=== PATIENT | female | born 1965 | race Caucasian/White ===

== ENCOUNTER 2017-12-26 11:11 | Emergency (ER) | payer MEDICARE, OTHER ==
--- NOTE | 2017-12-26 11:50 | ER Document Report ---
ED Medical Screen (RME) - General TRAVEL OUTSIDE OF THE [place] IN LAST 30 DAYS: No <MIKO LATIF - Last Filed: 12/26/17 11:49> <NIKKO MARTINEZ - Last Filed: 12/26/17 13:47> - General Chief Complaint: Alcohol Withdrawl Stated Complaint: ABDOMINAL PAIN - HPI Notes: 12/26/17 11:49 History of Lema and alcohol use/drink 1 hour prior to arrival states she drinks because she is also help out with her possibility of getting a liver transplant. History of hyperammonemia complaining of generalized weakness nausea requesting detox (MIKO LATIF) - Related Data Allergies/Adverse Reactions: No Known Allergies Allergy (Verified 12/26/17 11:15) Past Medical History Endocrine Medical History: Reports: Hx Diabetes Mellitus Type 2 GI Medical History: Denies: Hx Hepatitis Infectious Medical History: Denies: Hx Hepatitis Past Surgical History: Reports: Hx Cholecystectomy, Hx Hysterectomy - Immunizations Hx Diphtheria, Pertussis, Tetanus Vaccination: Yes <MIKO LATIF - Last Filed: 12/26/17 11:49> Review of Systems - Review of Systems Constitutional: Other - Weakness <MIKO LATIF - Last Filed: 12/26/17 11:49> Physical Exam - HEENT Head: Normocephalic Eyes: Normal Conjunctiva: Icteric <MIKO LATIF - Last Filed: 12/26/17 11:49> - Vital signs Vitals: Temp Pulse Resp BP Pulse Ox 98.6 F 103 H 20 142/68 H 96 12/26/17 11:17 12/26/17 11:17 12/26/17 11:17 12/26/17 11:17 12/26/17 11:17 Course - Laboratory Result Diagrams: 12/26/17 12:09 12/26/17 12:09 <NIKKO MARTINEZ - Last Filed: 12/26/17 13:47> - Vital Signs Vital signs: Temp Pulse Resp BP Pulse Ox 98.6 F 103 H 20 142/68 H 96 12/26/17 11:17 12/26/17 11:17 12/26/17 11:17 12/26/17 11:17 12/26/17 11:17 - Laboratory Laboratory results interpreted by me: 12/26/17 12/26/17 12/26/17 12:09 12:09 12:09 WBC 11.7 H RBC 3.39 L Hgb 11.3 L Hct 33.2 L MCV 98 H RDW 20.7 H Plt Count 129 L Absolute Neutrophils 9.0 H PT 18.0 H APTT 42.2 H Anion Gap 21 H Glucose 237 H Total Bilirubin 7.5 H Direct Bilirubin 3.8 H AST 145 H Alkaline Phosphatase 133 H Total Protein 8.8 H Serum Alcohol 323 H* Doctor's Discharge <MIKO LATIF - Last Filed: 12/26/17 11:49> <NIKKO MARTINEZ - Last Filed: 12/26/17 13:47> - Discharge Clinical Impression: Alcohol abuse Condition: Fair Disposition: HOME, SELF-CARE Instructions: Alcohol Withdrawl ([facility]), Chronic Alcoholism ([facility]) Prescriptions: Lorazepam [Ativan 1 mg Tablet] 1 mg PO Q4 #10 tablet
[2017-12-26 12:37] LABS: ABSOLUTE BASOPHILS # (AUTO) 0.1 10^3/uL (0.0-0.2); ABSOLUTE EOSINOPHILS # (AUTO) 0.2 10^3/uL (0.0-0.6); ABSOLUTE LYMPHOCYTES (AUTO) 1.7 10^3/uL (0.5-4.7); ABSOLUTE MONOCYTES (AUTO) 0.6 10^3/uL (0.1-1.4); BASOPHILS % (AUTO) 1.1 % (0-2); EOSINOPHILS % (AUTO) 1.8 % (0-6); HEMATOCRIT 33.2 % (36.0-47.0); HEMOGLOBIN 11.3 g/dL (12.0-15.5); LYMPHOCYTES % (AUTO) 14.5 % (13-45); MEAN CORPUSCULAR HEMOGLOBIN 33.2 pg (27.0-33.4); MEAN CORPUSCULAR HGB CONC 33.9 g/dL (32.0-36.0); MEAN CORPUSCULAR VOLUME 98 fl (80-97); MONOCYTES % (AUTO) 5.2 % (3-13); PLATELET COUNT 129 10^3/uL (150-450); RED BLOOD COUNT 3.39 10^6/uL (3.72-5.28); RED CELL DISTRIBUTION WIDTH 20.7 % (11.5-14.0); SEGMENTED NEUTROPHILS % (AUTO) 77.4 % (42-78); TOTAL CELLS COUNTED % (AUTO) 100 %; WHITE BLOOD COUNT 11.7 10^3/uL (4.0-10.5)
[2017-12-26 12:42] LABS: INTERNATIONAL RATION (INR) 1.42
[2017-12-26 12:43] LABS: PARTIAL THROMBOPLASTIN TIME 42.2 SEC (23.5-35.8)
[2017-12-26] MEDS ORDERED: LORAZEPAM INJ 2 MG/1 ML VIAL IV ONE (13:04)
[2017-12-26] MEDS ORDERED: ONDANSETRON HCL INJ/PF 4 MG/2 ML SDV IV ONE (13:04)
[2017-12-26] MEDS ORDERED: NORMAL SALINE 1000 ML 1,000 ML IV ONE (13:04)
[2017-12-26 13:05] LABS: ALANINE AMINOTRANSFERASE 33 U/L (9-52); ALBUMIN 3.9 g/dL (3.5-5.0); ALKALINE PHOSPHATASE 133 U/L (38-126); ASPARTATE AMINO TRANSFERASE 145 U/L (14-36); BILIRUBIN,DIRECT 3.8 mg/dL (0.0-0.4); BILIRUBIN,TOTAL 7.5 mg/dL (0.2-1.3); BLOOD UREA NITROGEN 13 mg/dL (7-20); GLUCOSE 237 mg/dL (75-110); LIPASE 171.4 U/L (23-300); POTASSIUM 4.3 mmol/L (3.6-5.0); TOTAL PROTEIN 8.8 g/dL (6.3-8.2)
[2017-12-26 13:09] LABS: CARBON DIOXIDE 25 mmol/L (22-30); CHLORIDE 98 mmol/L (98-107); SODIUM 144.2 mmol/L (137-145)
[2017-12-26 13:16] LABS: ANION GAP 21 (5-19)
[2017-12-26 13:26] LABS: ALCOHOL 323 mg/dL (NONE DETECTED)
[2017-12-26 13:55] VITALS: BP 129/77
--- NOTE | 2017-12-26 16:31 | ER Document Report ---
ED General - General Chief Complaint: Alcohol Withdrawl Stated Complaint: ABDOMINAL PAIN Time Seen by Provider: 12/26/17 11:50 TRAVEL OUTSIDE OF THE [place] IN LAST 30 DAYS: No - HPI Notes: Note patient seen by physician in triage who ordered labs. 52-year-old female history of an SOLORIO, now on the transplant list secondary liver failure who presents with wanting help with alcohol addiction. Patient chronic alcoholic who has somewhat of a bizarre story. Patient actually developed SOLORIO prior to beginning drinking. She states she began drinking several years after because she was frustrated and just wanted to . She however now feels a will to live, but wants help getting off of alcohol. She has been trying to cut down over the last couple of days, but has been getting sick. She has had occasional vomiting and nausea. Chronic loose stools. No acute abdominal pain. She has had the same symptoms in the past when she is crying to quit drinking. Of note, she does not wish anybody be notified as she is afraid she will lose her place on a transplant list. She states she will not authorize me to contact any of her providers. No other modifying factors, no other associated symptoms, no other provocative or palliative factors. - Related Data Allergies/Adverse Reactions: No Known Allergies Allergy (Verified 12/26/17 11:15) Past Medical History - Social History Smoking Status: Former Smoker Chew tobacco use (# tins/day): No Frequency of alcohol use: Heavy Drug Abuse: None Family History: Reviewed & Not Pertinent Patient has suicidal ideation: No Patient has homicidal ideation: No - Medical History Notes: Includes liver failure, transplant list Endocrine Medical History: Reports: Hx Diabetes Mellitus Type 2 Renal/ Medical History: Denies: Hx Peritoneal Dialysis GI Medical History: Denies: Hx Hepatitis Infectious Medical History: Denies: Hx Hepatitis Past Surgical History: Reports: Hx Cholecystectomy, Hx Hysterectomy - Immunizations Hx Diphtheria, Pertussis, Tetanus Vaccination: Yes Review of Systems - Review of Systems Notes: Review of systems as in the history of present illness, otherwise negative. Physical Exam - Vital signs Vitals: Temp Pulse Resp BP Pulse Ox 98.6 F 103 H 20 142/68 H 96 12/26/17 11:17 12/26/17 11:17 12/26/17 11:17 12/26/17 11:17 12/26/17 11:17 - Notes Notes: General: Well developed . Chronically ill in appearance HEENT: Normocephalic, atraumatic. Pupils equal round reactive to light. No JVD. Icteric Chest: No trauma. Respiratory: Good air exchange, normal excursion. Cardiac: Regular rhythm. No murmurs or gallops. Abdomen: Soft, benign. Nondistended. Nontender. Back: No asymmetry or gross abnormality. Motor: Decreased power and tone. Neurologic: Alert, nonfocal. Cranial nerves II-12 are intact. Sensation intact. Vascular: Well perfused. Normal peripheral pulses. Skin: No petechiae or purpura. Course - Re-evaluation Re-evalutation: 12/26/17 16:29 Chronically ill-appearing 52-year-old female presents with alcoholism, likely possible withdrawal or other side effects were used. Labs are reviewed, CBC unremarkable except chronic changes. Chemistries and LFTs are unremarkable except for elevated liver function testing which is expected. Alcohol level elevated in the low 300s. Part of this patient received IV fluids, Zofran and a single small dose of Ativan. She has had substantial improvement. I have reviewed at length with her and her options and suggested the possibility of medical admission and detox, however, they wish to make an attempt at home. I given the a prescription for Ativan taper which she will manage, patient will not be given this if she has any evidence of alcohol use. He will follow-up with her primary care physician and I have discussed with them outpatient resources. - Vital Signs Vital signs: Temp Pulse Resp BP Pulse Ox 98.6 F 103 H 15 129/77 H 93 12/26/17 11:17 12/26/17 11:17 12/26/17 13:45 12/26/17 13:45 12/26/17 13:45 - Laboratory Result Diagrams: 12/26/17 12:09 12/26/17 12:09 Laboratory results interpreted by me: 12/26/17 12/26/17 12/26/17 12:09 12:09 12:09 WBC 11.7 H RBC 3.39 L Hgb 11.3 L Hct 33.2 L MCV 98 H RDW 20.7 H Plt Count 129 L Absolute Neutrophils 9.0 H PT 18.0 H APTT 42.2 H Anion Gap 21 H Glucose 237 H Total Bilirubin 7.5 H Direct Bilirubin 3.8 H AST 145 H Alkaline Phosphatase 133 H Total Protein 8.8 H Serum Alcohol 323 H* Discharge - Discharge Clinical Impression: Alcohol abuse Condition: Fair Disposition: HOME, SELF-CARE Instructions: Alcohol Withdrawl ([facility]), Chronic Alcoholism ([facility]) Prescriptions: Lorazepam [Ativan 1 mg Tablet] 1 mg PO Q4 #10 tablet
== END 2017-12-26 13:55 | disposition home or self-care (01) ==
LOC: ER 11:11
DX: F10.10 Alcohol abuse, uncomplicated (principal); R10.9 Unspecified abdominal pain; R53.1 Weakness; R11.0 Nausea; E11.9 Type 2 diabetes mellitus without complications; Z90.49 Acquired absence of other specified parts of digestive tract; Z90.710 Acquired absence of both cervix and uterus
CPT/HCPCS: 99285; 96361; 96374; 96375; 36415; 80307; 82140; 83690; 85025; 85610; 85730; 80053; J2060; J2405; J7030

== ENCOUNTER 2017-12-27 11:22 | Inpatient (IN) | payer MEDICARE, OTHER ==
[2017-12-27 12:12] LABS: ABSOLUTE BASOPHILS # (AUTO) 0.1 10^3/uL (0.0-0.2); ABSOLUTE LYMPHOCYTES (AUTO) 1.3 10^3/uL (0.5-4.7); ABSOLUTE MONOCYTES (AUTO) 0.9 10^3/uL (0.1-1.4); BASOPHILS % (AUTO) 0.8 % (0-2); EOSINOPHILS % (AUTO) 0.4 % (0-6); HEMATOCRIT 28.5 % (36.0-47.0); HEMOGLOBIN 9.4 g/dL (12.0-15.5); LYMPHOCYTES % (AUTO) 12.8 % (13-45); MEAN CORPUSCULAR HGB CONC 32.9 g/dL (32.0-36.0); MONOCYTES % (AUTO) 8.5 % (3-13); PLATELET COUNT 108 10^3/uL (150-450); RED BLOOD COUNT 2.76 10^6/uL (3.72-5.28); RED CELL DISTRIBUTION WIDTH 20.2 % (11.5-14.0); SEGMENTED NEUTROPHILS % (AUTO) 77.5 % (42-78); TOTAL CELLS COUNTED % (AUTO) 100 %; WHITE BLOOD COUNT 10.4 10^3/uL (4.0-10.5)
[2017-12-27 12:28] LABS: ALANINE AMINOTRANSFERASE 33 U/L (9-52); ALBUMIN 3.5 g/dL (3.5-5.0); ALCOHOL 56 mg/dL (NONE DETECTED); ALKALINE PHOSPHATASE 112 U/L (38-126); ASPARTATE AMINO TRANSFERASE 121 U/L (14-36); BILIRUBIN,DIRECT 3.1 mg/dL (0.0-0.4); BILIRUBIN,TOTAL 5.7 mg/dL (0.2-1.3); BLOOD UREA NITROGEN 20 mg/dL (7-20); CALCIUM 9.1 mg/dL (8.4-10.2); CARBON DIOXIDE 25 mmol/L (22-30); CHLORIDE 91 mmol/L (98-107); LIPASE 204.3 U/L (23-300); POTASSIUM 4.2 mmol/L (3.6-5.0); TOTAL PROTEIN 7.5 g/dL (6.3-8.2)
[2017-12-27 12:29] LABS: MEAN CORPUSCULAR VOLUME 104 fl (80-97)
[2017-12-27] MEDS ORDERED: LORAZEPAM INJ 2 MG/1 ML VIAL IV ONE ×3 (12:32→14:57)
[2017-12-27] MEDS ORDERED: NORMAL SALINE 1000 ML 1,000 ML IV ONE ×2 (12:32→13:25)
[2017-12-27] MEDS ORDERED: PANTOPRAZOLE SODIUM 40 MG VIAL IV ONE (12:32)
[2017-12-27] MEDS ORDERED: ONDANSETRON HCL INJ/PF 4 MG/2 ML SDV IV ONE (12:32)
[2017-12-27 12:33] LABS: ANION GAP 22 (5-19)
[2017-12-27 12:36] LABS: GLUCOSE 599 mg/dL (75-110)
--- NOTE | 2017-12-27 12:39 | ER Document Report ---
ED General - General Chief Complaint: Black/Tarry Stools Stated Complaint: ABDOMINAL PAIN Time Seen by Provider: 12/27/17 11:32 TRAVEL OUTSIDE OF THE [place] IN LAST 30 DAYS: No - HPI Notes: This is a 52-year-old female with nonalcoholic steatotic hepatitis and attendant liver failure, on transplant list, chronic alcoholic who presents with not feeling well and having dark tarry stools. Of note, I saw this patient yesterday, she presented seeking help for getting off alcohol but he refused to allow me to contact any of her caregivers or to be admitted to the hospital. She now states overnight this morning she developed a general feeling of weakness, some epigastric discomfort and has had dark tarry stools. She is an exceptionally poor historian but indicates she has had some type of intervention before they had trouble "controlling bleeding". Sharp achy pain, burning, nonradiating. She claims her last drink was yesterday morning before she saw me. No other modifying factors, no other associated symptoms, no other provocative or palliative factors. - Related Data Allergies/Adverse Reactions: No Known Allergies Allergy (Verified 12/26/17 11:15) Past Medical History - General Information source: Patient - Social History Smoking Status: Unknown if Ever Smoked Frequency of alcohol use: Heavy Family History: Reviewed & Not Pertinent Patient has suicidal ideation: No Patient has homicidal ideation: No - Medical History Notes: Reviewed on the nursing notes and includes nonalcoholic steatohepatitis hepatitis, liver failure, possible ulcer, gastritis and variceal history Endocrine Medical History: Reports: Hx Diabetes Mellitus Type 2 Renal/ Medical History: Denies: Hx Peritoneal Dialysis GI Medical History: Denies: Hx Hepatitis Infectious Medical History: Denies: Hx Hepatitis Past Surgical History: Reports: Hx Cholecystectomy, Hx Hysterectomy - Immunizations Hx Diphtheria, Pertussis, Tetanus Vaccination: Yes Review of Systems - Review of Systems Notes: Review of systems as in the history of present illness, otherwise negative. Physical Exam - Vital signs Vitals: Pulse Ox 96 12/27/17 11:25 - Notes Notes: General: Chronically ill in appearance, moderate distress. HEENT: Normocephalic, atraumatic. Pupils equal round reactive to light. No JVD. Icteric Chest: No trauma. Respiratory: Good air exchange, normal excursion. Cardiac: Regular rhythm. No murmurs or gallops. Abdomen: Soft, benign. Nondistended. Moderate epigastric tenderness Back: No asymmetry or gross abnormality. Motor: G decreased power and tone. Neurologic: Alert, nonfocal. Cranial nerves II-12 are intact. Sensation intact. Vascular: Well perfused. Normal peripheral pulses. Skin: No petechiae or purpura. Course - Re-evaluation Re-evalutation: 12/27/17 12:39 This is an ill-appearing 52-year-old female who presents with dark tarry stools , high risk for GI bleeding. Certainly high risk for DTs and/or alcohol withdrawal as well. Plan to proceed with labs, x-ray, volume resuscitation, EKG. Check hemoglobin, type and cross, will likely require admission. - Vital Signs Vital signs: Temp Pulse Resp BP Pulse Ox 98.8 F 27 H 149/82 H 96 12/27/17 11:53 12/27/17 12:01 12/27/17 12:01 12/27/17 12:01 - Laboratory Result Diagrams: 12/27/17 10:45 12/27/17 10:45 Laboratory results interpreted by me: 12/27/17 12/27/17 10:45 10:45 RBC 2.76 L Hgb 9.4 L Hct 28.5 L MCV 104 H D MCH 34.0 H RDW 20.2 H Plt Count 108 L Lymphocytes % 12.8 L Chloride 91 L Anion Gap 22 H Glucose 599 H* Total Bilirubin 5.7 H Direct Bilirubin 3.1 H AST 121 H Discharge - Discharge Clinical Impression: GI bleed Qualifiers: GI bleed type/associated pathology: melena Qualified Code(s): K92.1 - Melena Condition: Serious Disposition: HOME, SELF-CARE Admitting Provider: Hospitalist Unit Admitted: IMCU Referrals: JUHI OZUNA MD [Primary Care Provider] - Follow up as needed
[2017-12-27] MEDS ORDERED: INSULIN LISPRO 100 UNIT/ML 3 ML VIAL SUBCUT ONE (12:55)
[2017-12-27] MEDS ORDERED: CEFTRIAXONE INJ 1000 MG VIAL IV ONE (13:06)
--- NOTE | 2017-12-27 13:17 | RADIOLOGY REPORT (SQ) ---
EXAM DESCRIPTION: CHEST SINGLE VIEW COMPLETED DATE/TIME: 12/27/2017 12:54 pm REASON FOR STUDY: dyspnea COMPARISON: None. EXAM PARAMETERS: NUMBER OF VIEWS: One view. TECHNIQUE: Single frontal radiographic view of the chest acquired. RADIATION DOSE: NA LIMITATIONS: None. FINDINGS: LUNGS AND PLEURA: No opacities, masses or pneumothorax. No pleural effusion. MEDIASTINUM AND HILAR STRUCTURES: No masses. Contour normal. HEART AND VASCULAR STRUCTURES: Heart normal in size. Normal vasculature. BONES: No acute findings. HARDWARE: None in the chest. OTHER: No other significant finding. IMPRESSION: NO ACUTE RADIOGRAPHIC FINDING IN THE CHEST. TECHNICAL DOCUMENTATION: JOB ID: [id number] QBE- All Rights Reserved Reading location - IP/workstation name: [email or web address]
[2017-12-27] MEDS ORDERED: PROMETHAZINE HCL INJ 25 MG/1 ML VIAL IV ONE (14:15)
[2017-12-27] MEDS ORDERED: DEXTROSE 50%-WATER 25 GM/50 ML DISP.SYRIN IV PRN ×4 (15:11→19:25)
[2017-12-27] MEDS ORDERED: INSULIN REG, HUMAN 100 UNIT/ML 3 ML VIAL (PYX) SUBCUT PRN (15:11)
[2017-12-27] MEDS ORDERED: DEXTROSE 40% GEL 15 GM TUBE PO PRN ×4 (15:11→19:25)
[2017-12-27] MEDS ORDERED: GLUCAGON,HUMAN RECOMB 1 MG INJ IM PRN ×2 (15:11→19:25)
[2017-12-27] MEDS: LORAZEPAM INJ 2 MG/1 ML VIAL IV SCH ×3 (16:10→23:57)
[2017-12-27 16:32] LABS: HEMATOCRIT 24.2 % (36.0-47.0); HEMOGLOBIN 8.3 g/dL (12.0-15.5); MEAN CORPUSCULAR HEMOGLOBIN 34.1 pg (27.0-33.4); MEAN CORPUSCULAR HGB CONC 34.1 g/dL (32.0-36.0); RED BLOOD COUNT 2.42 10^6/uL (3.72-5.28); RED CELL DISTRIBUTION WIDTH 20.8 % (11.5-14.0)
[2017-12-27 16:45] LABS: MEAN CORPUSCULAR VOLUME 100 fl (80-97); PLATELET COUNT 69 10^3/uL (150-450)
--- NOTE | 2017-12-27 17:48 | PDOC CONSULTATION ---
Consultation Consult Date: 12/27/17 Attending physician:: MAINE PABLO Consult reason:: Possible GI bleeding, melena. Anemia. Cirrhosis secondary to nonalcoholic fatty liver disease. Recent alcohol use with possible symptoms of withdrawal History of Present Illness Admission Date/PCP: 12/27/17 14:44 JUHI OZUNA MD History of Present Illness: MARTA BARBOSA is a 52 year old female Is a patient who was admitted by the hospitalist service earlier today. She presented yesterday to the ED for possible early symptoms of alcohol withdrawal. An attempt to manage as an outpatient failed. She came back to the ED. She does have chronic anemia and was complaining of epigastric pain with dark tarry stools. She apparently on a transplant list. She appears to have cirrhosis secondary to nonalcoholic fatty liver disease. She recently started drinking. She does have abnormal LFTs, suggestive of possibly an alcoholic hepatitis as well. She will need an EGD because she has possibly has varices. She should be started on a PPI. Her systolic pressures should be kept under 140 mmHg. Perhaps Sandostatin may be useful as well. She needs to be treated for withdrawal symptoms. EGD is planned at this point. Past Medical History Endocrine Medical History: Reports: Diabetes Mellitus Type 2 GI Medical History: Denies: Hepatitis Past Surgical History Past Surgical History: Reports: Cholecystectomy, Hysterectomy Social History Smoking Status: Unknown if Ever Smoked Family History Family History: Reviewed & Not Pertinent Parental Family History Reviewed: Yes Children Family History Reviewed: Unknown Sibling(s) Family History Reviewed.: Unknown Medication/Allergy Home Medications: Furosemide [Lasix 20 mg Tablet] 20 mg PO DAILY 12/27/17 Gabapentin [Neurontin] 1,200 mg PO QAM 12/27/17 Gabapentin [Neurontin] 2,400 mg PO QPM 12/27/17 Insulin Glargine,Hum.rec.anlog [Lantus Solostar] 60 units SQ BID 12/27/17 Midodrine HCl 10 mg PO Q8 12/27/17 Pantoprazole Sodium [Protonix] 40 mg PO BID 12/27/17 Promethazine HCl [Phenergan 25 mg Tablet] 25 mg PO Q6HP PRN 12/27/17 Propranolol HCl [Inderal 10 mg Tablet] 10 mg PO Q12 12/27/17 Quetiapine Fumarate [Seroquel] 50 mg PO QHS 12/27/17 Spironolactone [Aldactone 100 mg Tablet] 100 mg PO QAM 12/27/17 Trazodone HCl [Desyrel] 100 mg PO QHS 12/27/17 Allergies/Adverse Reactions: No Known Allergies Allergy (Verified 12/26/17 11:15) Review of Systems Constitutional: ABSENT: fever(s), headache(s), night sweats Eyes: ABSENT: visual disturbances Ears: ABSENT: hearing changes Nose, Mouth, and Throat: ABSENT: sore throat Cardiovascular: ABSENT: edema, orthropnea, palpitations Respiratory: ABSENT: dyspnea, hemoptysis Gastrointestinal: PRESENT: melena. ABSENT: diarrhea, dysphagia Genitourinary: ABSENT: dysuria, hematuria Integumentary: ABSENT: pruritus Neurological: ABSENT: syncope, tingling, tremor(s), vertigo Endocrine: ABSENT: polydipsia, polyphagia, polyuria Hematologic/Lymphatic: ABSENT: easy bruising Physical Exam Vital Signs: Temp Pulse Resp BP Pulse Ox 98.8 F 27 H 149/82 H 96 12/27/17 11:53 12/27/17 12:01 12/27/17 12:01 12/27/17 12:01 General appearance: PRESENT: mild distress, well-developed Head exam: PRESENT: atraumatic, normocephalic Eye exam: PRESENT: EOMI, PERRLA, scleral icterus. ABSENT: nystagmus Mouth exam: PRESENT: moist Throat exam: ABSENT: tonsillar exudate, tonsillogmegaly Neck exam: ABSENT: meningismus, tenderness, thyromegaly Respiratory exam: PRESENT: symmetrical, unlabored. ABSENT: tachypnea, wheezes Cardiovascular exam: PRESENT: RRR, +S1, +S2 GI/Abdominal exam: PRESENT: soft. ABSENT: rebound, rigid, tenderness Extremities exam: ABSENT: joint swelling Musculoskeletal exam: PRESENT: full ROM Neurological exam: PRESENT: alert, altered, oriented to time Focused psych exam: PRESENT: restlessness Skin exam: PRESENT: normal color. ABSENT: mottled, pallor, urticaria, vesicles Results Laboratory Results: 12/27/17 15:39 12/27/17 15:39 WBC 9.0 RBC 2.42 L Hgb 8.3 L Hct 24.2 L MCV 100 H D MCH 34.1 H MCHC 34.1 RDW 20.8 H Plt Count 69 L Impressions: Chest X-Ray 12/27/17 12:39 IMPRESSION: NO ACUTE RADIOGRAPHIC FINDING IN THE CHEST. Assessment & Plan - Diagnosis (1) Delirium tremens Plan: Plan as per hospitalist admission., Needs IV fluids Check phosphorus. (2) Abnormal LFTs Plan: Could be either component of alcohol induced liver disease, and a combination of fatty liver disease. need to exclude alcoholic hepatitis as well. (3) GI bleed Qualifiers: GI bleed type/associated pathology: melena Qualified Code(s): K92.1 - Melena Plan: Differential includes possible peptic ulcer versus esophageal variceal bleeding. However the latter seems less likely given that she is hemodynamically stable. She does have chronic anemia. She will need to be started on a PPI. She will need to have an EGD. Would be lowe to have that done in the propofol sedation. Risk benefits alternatives were explained to the patient in detail. Further recommendations to follow. We will need to check a coagulopathy profile. (4) Cirrhosis Plan: Patient provides history that this could be secondary to nonalcoholic fatty liver disease. Certainly her use of alcohol is making things much worse for her. She appears to be on a transplant list. We will need to get records of that. - Time Time Spent: 50 to 70 Minutes
--- NOTE | 2017-12-27 18:21 | EKG REPORT ---
SEVERITY:- OTHERWISE NORMAL ECG - SINUS TACHYCARDIA : Confirmed by: Declan Her MD 27-Dec-2017 18:20:15
[2017-12-27] MEDS: LORAZEPAM INJ 2 MG/1 ML VIAL IV PRN ×2 (18:46→22:37)
--- NOTE | 2017-12-27 19:29 | PDOC H&P ---
History of Present Illness Admission Date/PCP: 12/27/17 14:44 JUHI OZUNA MD Patient complains of: Intractable nausea and vomiting and GI bleeding. Tremors History of Present Illness: MARTA BARBOSA is a 52 year old female Who has a complicated past medical history. She apparently has a history of Lema and is currently on a transplant list in [place]. She recently has started drinking heavily and she may have some alcoholic liver disease as well. In any event the patient presented to the emergency room with alcohol withdrawal symptoms and evidence of GI bleeding. She was seen in the emergency room yesterday and had normal hemoglobin. The emergency room physician was going to place her on a lorazepam taper at home as she stated that she wanted to stop drinking. However when she got home her tremors worsened. She started having intractable nausea and vomiting with coffee ground emesis. She also was having dark tarry stools and then had one bloody bowel movement. Past Medical History Cardiac Medical History: Reports: None Denies: Atrial Fibrillation, Congestive Heart Failure, Coronary Artery Disease, Hyperlipidema, Hypertension Pulmonary Medical History: Denies: None, Asthma, Bronchitis, Chronic Obstructive Pulmonary Disease (COPD ), Respiratory Failure EENT Medical History: Denies: Cataracts Neurological Medical History: Denies: Hemorrhagic CVA, Ischemic CVA, Seizures Endocrine Medical History: Reports: Diabetes Mellitus Type 2 Renal/ Medical History: Denies: Chronic Kidney Disease Malignancy Medical History: Reports: None GI Medical History: Reports: Other - Nonalcoholic liver disease and possible alcoholic liver disease as well Denies: Hepatitis Musculoskeltal Medical History: Reports: None Skin Medical History: Reports: None Psychiatric Medical History: Reports: Alcohol Dependency Traumatic Medical History: Reports: None Hematology: Reports: None Infectious Medical History: Reports: None Past Surgical History Past Surgical History: Reports: Cholecystectomy, Hysterectomy Social History Information Source: Patient Lives with: Spouse/Significant other Smoking Status: Unknown if Ever Smoked Frequency of Alcohol Use: Heavy Last Alcohol Use: 12/26/17 Hx Recreational Drug Use: No Drugs: None Hx Prescription Drug Abuse: No - Advance Directive Resuscitation Status: Full Code Family History Family History: None, Reviewed & Not Pertinent Parental Family History Reviewed: Yes Children Family History Reviewed: Yes Sibling(s) Family History Reviewed.: Yes Medication/Allergy Home Medications: Furosemide [Lasix 20 mg Tablet] 20 mg PO DAILY 12/27/17 Gabapentin [Neurontin] 1,200 mg PO QAM 12/27/17 Gabapentin [Neurontin] 2,400 mg PO QPM 12/27/17 Insulin Glargine,Hum.rec.anlog [Lantus Solostar] 60 units SQ BID 12/27/17 Midodrine HCl 10 mg PO Q8 12/27/17 Pantoprazole Sodium [Protonix] 40 mg PO BID 12/27/17 Promethazine HCl [Phenergan 25 mg Tablet] 25 mg PO Q6HP PRN 12/27/17 Propranolol HCl [Inderal 10 mg Tablet] 10 mg PO Q12 12/27/17 Quetiapine Fumarate [Seroquel] 50 mg PO QHS 12/27/17 Spironolactone [Aldactone 100 mg Tablet] 100 mg PO QAM 12/27/17 Trazodone HCl [Desyrel] 100 mg PO QHS 12/27/17 Allergies/Adverse Reactions: No Known Allergies Allergy (Verified 12/26/17 11:15) Review of Systems Constitutional: PRESENT: headache(s), weakness. ABSENT: chills, fever(s) Eyes: ABSENT: visual disturbances Ears: ABSENT: hearing changes Nose, Mouth, and Throat: PRESENT: headache(s) Cardiovascular: ABSENT: chest pain, dyspnea on exertion, edema, orthropnea, palpitations Respiratory: ABSENT: cough, hemoptysis Gastrointestinal: PRESENT: abdominal pain, coffee ground emesis, hematochezia, melena, nausea, vomiting Genitourinary: ABSENT: dysuria, hematuria Integumentary: ABSENT: rash, wounds Neurological: ABSENT: abnormal gait, abnormal speech, confusion, dizziness, focal weakness, syncope Psychiatric: PRESENT: anxiety, depression Endocrine: ABSENT: cold intolerance, heat intolerance, polydipsia, polyuria Hematologic/Lymphatic: ABSENT: easy bleeding, easy bruising Physical Exam Vital Signs: Temp Pulse Resp BP Pulse Ox 101.0 F H 125 H 18 135/61 H 97 12/27/17 18:47 12/27/17 18:47 12/27/17 18:47 12/27/17 18:47 12/27/17 18:47 Intake & Output 12/26/17 12/27/17 12/28/17 06:59 06:59 06:59 Weight 83.1 kg General appearance: PRESENT: mild distress, well-developed Head exam: PRESENT: atraumatic, normocephalic Eye exam: PRESENT: scleral icterus Ear exam: PRESENT: normal external ear exam Mouth exam: PRESENT: moist Neck exam: ABSENT: carotid bruit, JVD, lymphadenopathy, thyromegaly Respiratory exam: PRESENT: clear to auscultation galdino. ABSENT: rales, rhonchi, wheezes Cardiovascular exam: PRESENT: RRR. ABSENT: diastolic murmur, rubs, systolic murmur Pulses: PRESENT: normal dorsalis pedis pul GI/Abdominal exam: PRESENT: guarding, normal bowel sounds, soft, tenderness. ABSENT: distended, mass, organolmegaly, rebound Rectal exam: PRESENT: deferred Extremities exam: PRESENT: full ROM. ABSENT: calf tenderness, clubbing, pedal edema Musculoskeletal exam: PRESENT: ambulatory Neurological exam: PRESENT: alert, awake, oriented to person, oriented to place , oriented to time, oriented to situation, CN II-XII grossly intact, other - She has a significant tremor. ABSENT: motor sensory deficit Psychiatric exam: PRESENT: anxious, depressed Skin exam: PRESENT: dry, intact, warm. ABSENT: cyanosis, rash Results Laboratory Results: 12/27/17 15:39 12/27/17 15:39 WBC 9.0 RBC 2.42 L Hgb 8.3 L Hct 24.2 L MCV 100 H D MCH 34.1 H MCHC 34.1 RDW 20.8 H Plt Count 69 L Impressions: Chest X-Ray 12/27/17 12:39 IMPRESSION: NO ACUTE RADIOGRAPHIC FINDING IN THE CHEST. Assessment & Plan - Diagnosis (1) GI bleed Qualifiers: GI bleed type/associated pathology: melena Qualified Code(s): K92.1 - Melena Is this a current diagnosis for this admission?: Yes Plan: The patient's hemoglobin in the emergency room yesterday was 11.7. It is drifted down to 10.4 today. She has been typed and screened but we are not going to transfuse her as of yet. Therapy will be outlined below. Dr. Mehta from the GI service has been consulted. She has been started on a Protonix drip. (2) Acute blood loss anemia Is this a current diagnosis for this admission?: Yes Plan: For now we will hold off on transfusion. Continue to trend H&H is (3) LEMA (nonalcoholic steatohepatitis) Is this a current diagnosis for this admission?: Yes Plan: She was on the transplant list. 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 Fragoso at [facility] about her alcohol use. I have informed her that I am not going to call him however he will likely follow him find out about this.I would not be surprised if she does not have some alcoholic liver disease contributing to her current decompensated liver failure. (4) Alcohol withdrawal Is this a current diagnosis for this admission?: Yes Plan: The patient will be placed on scheduled IV Ativan. She will have additional Ativan available as needed. She wants to get off of alcohol while she is in the hospital and she is quite adamant about this. (5) Alcohol abuse Is this a current diagnosis for this admission?: Yes Plan: Reportedly the patient started using alcohol to speed up getting on the list for the liver transplant. She states that she was just hovering in limbo and wanted to just get on the list so that she could have the transplant and get it over with. (6) Diabetes Is this a current diagnosis for this admission?: Yes Plan: The patient takes 60 units of Lantus twice daily at home. I am going to start her on 40 units twice daily. Her blood sugars are markedly uncontrolled. I have placed her on a sliding scale but increase the dose of the sliding scale. (7) Severe diabetic hypoglycemia Is this a current diagnosis for this admission?: Yes Plan: Plan as above (8) Full code status Is this a current diagnosis for this admission?: Yes - Time Time Spent: Greater than 70 Minutes - Inpatient Certification Medical Necessity: Need For IV Fluids - Inpatient hospitalization remains necessary. Overall this patient is quite ill. She is actively going through alcohol withdrawal. She has GI bleeding and needs GI evaluation. She is unable to keep anything down. I suspect she will be in the hospital for several days. I fully expect her hospitalization to span greater than 2 midnights., Other
[2017-12-27] MEDS: PROMETHAZINE HCL INJ 25 MG/1 ML VIAL IV PRN (20:16)
[2017-12-27] MEDS: GABAPENTIN 300 MG CAPSULE PO SCH (20:57)
[2017-12-27] MEDS: RIFAXIMIN 550 MG TABLET PO SCH (20:57)
[2017-12-27] MEDS: LACTULOSE SYRUP 20 GM/30 ML UDCUP PO SCH ×2 (20:57→23:56)
[2017-12-27] MEDS: NORMAL SALINE 100 ML with PANTOPRAZOLE SODIUM 80 MG IV PRN ×2 (21:10)
[2017-12-27] MEDS: MIDODRINE HCL 5 MG TABLET PO SCH (21:10)
[2017-12-27] MEDS: BUPROPION HCL 75 MG TABLET PO SCH (21:38)
[2017-12-27] MEDS ORDERED: (PENDING PHARMACY ID) (Midodrine Hcl [Midodrine Hcl] 10 MG) PO SCH (22:00)
[2017-12-27] MEDS ORDERED: TRAZODONE HCL 50 MG TABLET PO SCH (22:00)
[2017-12-27] MEDS ORDERED: (PENDING PHARMACY ID) (Trazodone Hcl [Desyrel] 100 MG) PO SCH (22:00)
[2017-12-27] MEDS ORDERED: INSULIN GLARGINE,HUM.REC.ANLOG 300 UNIT/3 ML INSULN.PEN SUBCUT SCH (22:00)
[2017-12-27] MEDS ORDERED: QUETIAPINE FUMARATE 25 MG TABLET PO SCH (22:00)
[2017-12-27] MEDS ORDERED: (PENDING PHARMACY ID) (Quetiapine Fumarate [Seroquel] 50 MG) PO SCH (22:00)
[2017-12-27] MEDS: INSULIN GLARGINE,HUM.REC.ANLOG 300 UNIT/3 ML INSULN.PEN SUBCUT SCH (22:38)
[2017-12-28] MEDS: LORAZEPAM INJ 2 MG/1 ML VIAL IV SCH ×4 (03:06→15:33)
[2017-12-28] MEDS: NORMAL SALINE 100 ML with PANTOPRAZOLE SODIUM 80 MG IV PRN ×2 (04:05)
[2017-12-28] MEDS: NORMAL SALINE 1000 ML 1,000 ML IV PRN ×2 (04:06→15:46)
[2017-12-28] MEDS ORDERED: LANSOPRAZOLE 30 MG TAB.RAP.DR PO SCH (06:00)
[2017-12-28] MEDS: PROMETHAZINE HCL INJ 25 MG/1 ML VIAL IV PRN (06:05)
[2017-12-28] MEDS: LACTULOSE SYRUP 20 GM/30 ML UDCUP PO SCH ×2 (06:07→11:25)
[2017-12-28] MEDS: MIDODRINE HCL 5 MG TABLET PO SCH (06:08)
[2017-12-28 06:41] LABS: ABSOLUTE EOSINOPHILS # (AUTO) 0.1 10^3/uL (0.0-0.6); ABSOLUTE LYMPHOCYTES (AUTO) 0.9 10^3/uL (0.5-4.7); ABSOLUTE MONOCYTES (AUTO) 0.2 10^3/uL (0.1-1.4); ABSOLUTE NEUT (AUTO) 1.5 10^3/uL (1.7-8.2); BASOPHILS % (AUTO) 1.5 % (0-2); EOSINOPHILS % (AUTO) 2.8 % (0-6); HEMATOCRIT 18.5 % (36.0-47.0); LYMPHOCYTES % (AUTO) 32.6 % (13-45); MEAN CORPUSCULAR HEMOGLOBIN 34.2 pg (27.0-33.4); MEAN CORPUSCULAR HGB CONC 34.5 g/dL (32.0-36.0); MEAN CORPUSCULAR VOLUME 99 fl (80-97); MONOCYTES % (AUTO) 7.2 % (3-13); RED BLOOD COUNT 1.87 10^6/uL (3.72-5.28); RED CELL DISTRIBUTION WIDTH 20.4 % (11.5-14.0); SEGMENTED NEUTROPHILS % (AUTO) 55.9 % (42-78); TOTAL CELLS COUNTED % (AUTO) 100 %
[2017-12-28 06:47] LABS: ALANINE AMINOTRANSFERASE 32 U/L (9-52); ALBUMIN 2.4 g/dL (3.5-5.0); ALKALINE PHOSPHATASE 74 U/L (38-126); ANION GAP 5 (5-19); ASPARTATE AMINO TRANSFERASE 73 U/L (14-36); BILIRUBIN,DIRECT 2.7 mg/dL (0.0-0.4); BILIRUBIN,TOTAL 7.2 mg/dL (0.2-1.3); BLOOD UREA NITROGEN 17 mg/dL (7-20); CALCIUM 7.9 mg/dL (8.4-10.2); CARBON DIOXIDE 30 mmol/L (22-30); CHLORIDE 105 mmol/L (98-107); CHOLESTEROL 134.51 mg/dL (0-200); GLUCOSE 119 mg/dL (75-110); LIPASE 72.6 U/L (23-300); PHOSPHORUS 1.9 mg/dL (2.5-4.5); POTASSIUM 3.7 mmol/L (3.6-5.0); SODIUM 139.8 mmol/L (137-145); TOTAL PROTEIN 5.7 g/dL (6.3-8.2); TRIGLYCERIDES 85 mg/dL (<150)
[2017-12-28 06:58] LABS: DIRECT LDL 48 mg/dL (<100)
[2017-12-28] MEDS ORDERED: (PENDING PHARMACY ID) (Spironolactone [Aldactone 100 Mg Tablet] 100 MG) PO SCH (08:00)
[2017-12-28 08:02] LABS: PLATELET COUNT 39 10^3/uL (150-450); WHITE BLOOD COUNT 2.7 10^3/uL (4.0-10.5)
[2017-12-28 08:04] LABS: HEMOGLOBIN 6.4 g/dL (12.0-15.5)
[2017-12-28] MEDS: INSULIN GLARGINE,HUM.REC.ANLOG 300 UNIT/3 ML INSULN.PEN SUBCUT SCH (08:59)
[2017-12-28] MEDS: GABAPENTIN 300 MG CAPSULE PO SCH ×3 (09:15→18:31)
[2017-12-28] MEDS: RIFAXIMIN 550 MG TABLET PO SCH ×2 (09:15→17:47)
[2017-12-28] MEDS: BUPROPION HCL 75 MG TABLET PO SCH (09:15)
[2017-12-28] MEDS ORDERED: PROMETHAZINE HCL INJ 25 MG/1 ML VIAL IV ONE (09:30)
[2017-12-28] MEDS: MAGNESIUM SULFATE/D5W 1 GM/100 ML RTUPB IV SCH ×3 (09:31→15:40)
[2017-12-28] MEDS ORDERED: SPIRONOLACTONE 25 MG TABLET PO SCH (10:00)
[2017-12-28] MEDS ORDERED: SPIRONOLACTONE PO SCH (10:00)
[2017-12-28] MEDS ORDERED: FUROSEMIDE 20 MG TABLET PO SCH (10:00)
[2017-12-28] MEDS ORDERED: BUPROPION HCL PO SCH (10:00)
[2017-12-28] MEDS ORDERED: FUROSEMIDE 80 MG TABLET PO SCH (10:00)
[2017-12-28] MEDS ORDERED: FOLIC ACID 1 MG TABLET PO SCH (10:00)
--- NOTE | 2017-12-28 10:41 | PDOC PROGRESS REPORT ---
Subjective Progress Note for:: 12/28/17 Subjective:: Admitted with GI bleed, Patient was admitted with a history of Lema and she is currently on transplant list. She also has a history of alcohol abuse and so has superimposed alcoholic liver disease as per records. She presented to the emergency room with GI bleeding as well as a alcohol withdrawal symptoms. She had intractable nausea and vomiting with coffee-ground emesis as well as dark tarry stools prior to admission. Denies any since been admitted however hemoglobin is noted to be 6.4 today down from 8. She denies any dizziness but still has abdominal pain next Up Reason For Visit: GI BLEED ETOH WITHDRAWAL Physical Exam Vital Signs: Temp Pulse Resp BP Pulse Ox 98.1 F 94 17 111/41 L 95 12/28/17 07:10 12/28/17 07:10 12/28/17 07:10 12/28/17 07:10 12/28/17 07:10 Intake & Output 12/27/17 12/28/17 12/29/17 06:59 06:59 06:59 Intake Total 1679 Balance 1679 Weight 83.1 kg General appearance: PRESENT: no acute distress Head exam: PRESENT: atraumatic Eye exam: PRESENT: PERRLA Ear exam: PRESENT: normal external ear exam Respiratory exam: PRESENT: clear to auscultation galdino. ABSENT: rales, rhonchi, wheezes Cardiovascular exam: PRESENT: RRR. ABSENT: diastolic murmur, rubs, systolic murmur GI/Abdominal exam: PRESENT: normal bowel sounds, tenderness - vague mild Rectal exam: PRESENT: deferred Extremities exam: PRESENT: full ROM. ABSENT: calf tenderness, clubbing, pedal edema Musculoskeletal exam: PRESENT: ambulatory Neurological exam: PRESENT: alert, awake, oriented to person, oriented to place , oriented to time, oriented to situation Psychiatric exam: PRESENT: appropriate affect, normal mood. ABSENT: homicidal ideation, suicidal ideation Results Laboratory Results: 12/28/17 05:55 12/28/17 05:55 12/27/17 12/28/17 12/28/17 15:39 05:55 05:55 WBC 9.0 2.7 L D RBC 2.42 L 1.87 L Hgb 8.3 L 6.4 L Hct 24.2 L 18.5 L MCV 100 H D 99 H MCH 34.1 H 34.2 H MCHC 34.1 34.5 RDW 20.8 H 20.4 H Plt Count 69 L 39 L Seg Neutrophils % 55.9 Lymphocytes % 32.6 Monocytes % 7.2 Eosinophils % 2.8 Basophils % 1.5 Absolute Neutrophils 1.5 L Absolute Lymphocytes 0.9 Absolute Monocytes 0.2 Absolute Eosinophils 0.1 Absolute Basophils 0.0 Sodium 139.8 Potassium 3.7 Chloride 105 Carbon Dioxide 30 Anion Gap 5 BUN 17 Creatinine 0.72 Est GFR ( Amer) > 60 Est GFR (Non-Af Amer) > 60 Glucose 119 H Calcium 7.9 L Phosphorus 1.9 L Magnesium 1.2 L* Total Bilirubin 7.2 H AST 73 H ALT 32 Alkaline Phosphatase 74 Ammonia Total Protein 5.7 L Albumin 2.4 L Triglycerides 85 Cholesterol 134.51 LDL Cholesterol Direct 48 VLDL Cholesterol 17.0 HDL Cholesterol 31 L Lipase 72.6 TSH 12/28/17 12/28/17 05:55 05:55 WBC RBC Hgb Hct MCV MCH MCHC RDW Plt Count Seg Neutrophils % Lymphocytes % Monocytes % Eosinophils % Basophils % Absolute Neutrophils Absolute Lymphocytes Absolute Monocytes Absolute Eosinophils Absolute Basophils Sodium Potassium Chloride Carbon Dioxide Anion Gap BUN Creatinine Est GFR ( Amer) Est GFR (Non-Af Amer) Glucose Calcium Phosphorus Magnesium Total Bilirubin AST ALT Alkaline Phosphatase Ammonia 19.6 Total Protein Albumin Triglycerides Cholesterol LDL Cholesterol Direct VLDL Cholesterol HDL Cholesterol Lipase TSH 1.42 Impressions: Chest X-Ray 12/27/17 12:39 IMPRESSION: NO ACUTE RADIOGRAPHIC FINDING IN THE CHEST. Assessment & Plan - Time Time Spent with patient: 15-24 minutes Medications reviewed and adjusted accordingly: Yes Anticipated discharge: Home - Inpatient Certification Based on my medical assessment, after consideration of the patient's comorbidities, presenting symptoms, or acuity I expect that the services needed warrant INPATIENT care.: Yes Medical Necessity: Need For IV Fluids - Plan Summary Plan Summary: 1. Upper GI bleeding likely secondary to alcoholic liver disease. She is currently on a Protonix drip and she will be transfused. She is also scheduled for EGD today 2. Acute blood loss anemia secondary to GI losses. Patient is to be transfused today 3. Nonalcoholic steatohepatitis this apparently was the primary etiology however patient also has alcoholic liver disease. As she is apparently on this transplant list she is jeopardizing her chance at transplant. 4. Alcohol withdrawal secondary to alcohol abuse. Patient apparently wants to stop drinking but she will need more than motivation to be able to do this 5. Type 2 diabetes mellitus currently on sliding scale insulin. She is also on 40 units of Lantus twice a day which will be held as she has been n.p.o. 6. Patient is a full code 7. Hypomagnesemia and hypophosphatemia this to be replaced 8. Pancytopenia likely secondary to liver disease and bone marrow suppression. Blood count is down to 39,000 today. We will continue to monitor carefully and transfuse if needed
[2017-12-28] MEDS ORDERED: SPIRONOLACTONE 25 MG TABLET PO ONE (11:30)
[2017-12-28] MEDS ORDERED: PROPOFOL INJ 200 MG/20 ML VIAL IV ONE (12:18)
[2017-12-28 12:33] LABS: APPEARANCE,URINE CLEAR; BILIRUBIN,URINE NEGATIVE (NEGATIVE); GLUCOSE, URINE 150 mg/dL (NEGATIVE); KETONES,URINE NEGATIVE (NEGATIVE); LEUKOCYTE ESTERASE,URINE NEGATIVE (NEGATIVE); NITRITE,URINE NEGATIVE (NEGATIVE); PROTEIN,URINE NEGATIVE (NEGATIVE); URINE SPECIFIC GRAVITY 1.015; UROBILINOGEN,URINE NEGATIVE mg/dL (<2.0)
[2017-12-28 12:36] LABS: COLOR,URINE DARK YELLOW
[2017-12-28 13:18] LABS: URINE AMPHETAMINES SCREEN NEGATIVE; URINE BARBITURATES SCREEN NEGATIVE; URINE BENZODIAZEPINES SCREEN NEGATIVE; URINE COCAINE SCREEN NEGATIVE; URINE MARIJUANA (THC) SCREEN NEGATIVE; URINE METHADONE SCREEN NEGATIVE; URINE PHENCYCLIDINE SCREEN NEGATIVE
[2017-12-28] MEDS ORDERED: NORMAL SALINE 250 ML IV PRN ×2 (13:20)
[2017-12-28] MEDS ORDERED: ONDANSETRON HCL INJ/PF 4 MG/2 ML SDV ONE (14:14)
[2017-12-28] MEDS ORDERED: EPINEPHRINE INJ 1 MG/10 ML DISP.SYRIN ONE (14:14)
[2017-12-28] MEDS ORDERED: EPINEPHRINE INJ/PF 1 MG/1 ML AMPULE ONE (14:14)
--- NOTE | 2017-12-28 14:45 | Operative Report ---
Operative Report DATE OF SURGERY: 12/28/17 Operative Report: The risks benefits and alternatives of the procedure explained to the patient in detail and informed consent is obtained.A GIF Olympus video scope was inserted into the patient's mouth and hypopharynx, the esophagus is identified intubated and insufflated, the scope was then advanced through the esophagus stomach and duodenum, retroflexion maneuver is done, the esophagus stomach and first and second portions of the duodenum examined PREOPERATIVE DIAGNOSIS: Possible upper GI bleeding POSTOPERATIVE DIAGNOSIS: Grade 1 esophageal varices. No active bleeding noted no red aba sign. Diffuse gastritis noted in the stomach. No active bleeding noted. Normal first and second portions of the duodenum. No blood noted in the upper GI tract OPERATION: Diagnostic EGD SURGEON: MAINE PABLO ANESTHESIA: LMAC TISSUE REMOVED OR ALTERED: None. COMPLICATIONS: None. ESTIMATED BLOOD LOSS: None. INTRAOPERATIVE FINDINGS: As noted above. PROCEDURE: Patient tolerated procedure well. She is sent back to her room in good condition. I spoke to the hospitalist position. There is apparently a platelet shortage in his hospital. Unfortunately patient is very critical at this point in time and I have advised transferred to a tertiary institution. She should have her coagulant profile checked with a PT/INR Liver function should be followed She is apparently on a transplant list would be lowe to contact transplant center to have them except patient in transfer. Further recommendations to follow.
[2017-12-28] MEDS ORDERED: MAGNESIUM SULFATE/D5W 1 GM/100 ML RTUPB IV ONE (15:35)
[2017-12-28] MEDS ORDERED: FUROSEMIDE 20 MG TABLET PO ONE (16:00)
[2017-12-28 16:06] VITALS: BP 122/72
[2017-12-28] MEDS ORDERED: MIDODRINE HCL 5 MG TABLET PO SCH (18:00)
[2017-12-28] MEDS ORDERED: LACTULOSE SYRUP 20 GM/30 ML UDCUP PO SCH (18:00)
[2017-12-28] MEDS ORDERED: INSULIN GLARGINE,HUM.REC.ANLOG 300 UNIT/3 ML INSULN.PEN SUBCUT SCH (18:00)
--- NOTE | 2017-12-28 18:21 | PDOC TRANSFER SUMMARY ---
General Admission Date/PCP: 12/27/17 14:44 JUHI OZUNA MD Resuscitation Status: Full Code - Transfer Diagnosis (1) Cirrhosis Is this a current diagnosis for this admission?: Yes (2) Alcohol withdrawal Is this a current diagnosis for this admission?: Yes (3) Acute blood loss anemia Is this a current diagnosis for this admission?: Yes (4) Thrombocytopenia Is this a current diagnosis for this admission?: Yes (5) GI bleed Is this a current diagnosis for this admission?: Yes Diagnosis Summary: Status post 2 units of packed red blood cell transfusion (6) Alcohol abuse Is this a current diagnosis for this admission?: Yes Diagnosis Summary: Apparently due to history of underlying nonalcoholic steatohepatitis otitis as well as alcoholic liver disease (7) Diabetes Is this a current diagnosis for this admission?: Yes (8) SOLORIO (nonalcoholic steatohepatitis) Is this a current diagnosis for this admission?: Yes (9) Electrolyte abnormality Is this a current diagnosis for this admission?: Yes Diagnosis Summary: including magnesium and phosphorous - Transfer Medications Home Medications: Furosemide [Lasix 20 mg Tablet] 20 mg PO DAILY 12/27/17 Midodrine HCl 10 mg PO Q8 12/27/17 Pantoprazole Sodium [Protonix] 40 mg PO BID 12/27/17 Quetiapine Fumarate [Seroquel] 50 mg PO QHS 12/27/17 Trazodone HCl [Desyrel] 100 mg PO QHS 12/27/17 Transfer Medications: Current Medications Bupropion HCl (Wellbutrin 75 Mg Tablet) 75 mg PO Q12 APRYL Stop: 01/26/18 21:59 Last Admin: 12/28/17 09:15 Dose: 75 mg Dextrose (Dextrose Inj 50% Syringe (25 Gm/50 Ml)) 12.5 gm IV PRN PRN; Protocol PRN Reason: FOR BG 50-69 IN ALERT PATIENT Stop: 01/26/18 15:10 Dextrose (Dextrose Inj 50% Syringe (25 Gm/50 Ml)) 25 gm IV PRN PRN; Protocol PRN Reason: PER PROTOCOL Stop: 01/26/18 15:10 Folic Acid (Folvite 1 Mg Tablet) 1 mg PO DAILY APRYL Stop: 01/27/18 09:59 Last Admin: 12/28/17 09:15 Dose: 1 mg Furosemide (Lasix 20 Mg Tablet) 20 mg PO DAILY APRYL Stop: 01/27/18 09:59 Last Admin: 12/28/17 09:10 Dose: Not Given Gabapentin (Neurontin 300 Mg Capsule) 300 mg PO TID [facility] Stop: 01/26/18 17:59 Last Admin: 12/28/17 15:40 Dose: 300 mg Glucagon (Glucagen Inj 1 Mg Vial) 1 mg IM PRN PRN; Protocol PRN Reason: Evaluate for BG < 70 Stop: 01/26/18 15:10 Glucose (Glutose 40% Gel 15 Gm Tube) 15 gm PO PRN PRN; Protocol PRN Reason: FOR BG 50-69 IN ALERT PATIENT Stop: 01/26/18 15:10 Glucose (Glutose 40% Gel 15 Gm Tube) 30 gm PO PRN PRN; Protocol PRN Reason: FOR BG < 50 IN ALERT PATIENT Stop: 01/26/18 15:10 Sodium Chloride (Nacl 0.9% 1000 Ml Iv Soln) 1,000 mls @ 100 mls/hr IV CONTINUOUS PRN PRN Reason: THIS MED IS NOT "PRN" Stop: 01/26/18 15:17 Last Admin: 12/28/17 15:46 Dose: 1,000 ml Sodium Chloride (Nacl 0.9% 250 Ml Iv Soln) 250 mls @ 30 mls/hr IV .DURING TRANSFUSION PRN PRN Reason: THIS MED IS NOT "PRN" Stop: 12/29/17 13:19 Sodium Chloride (Nacl 0.9% 250 Ml Iv Soln) 250 mls @ 0 mls/hr IV CONTINUOUS PRN ; As Directed PRN Reason: AFTER EACH UNIT Stop: 12/29/17 13:19 Insulin Glargine (Lantus Insulin Inj 300 Unit/3 Ml Pen) 10 unit SUBCUT Q12A [facility] Stop: 01/27/18 17:59 Last Admin: 12/28/17 17:46 Dose: 10 unit Insulin Human Regular (Humulin R (Pyxis) Insulin 100 Unit/Ml 3ml) 0 - 12 unit SUBCUT ACHSP PRN; Protocol PRN Reason: PER PROTOCOL Stop: 01/26/18 15:10 Last Admin: 12/28/17 17:46 Dose: 6 unit Lactulose (Cephulac Syrup 20 Gm/30 Ml Udcup) 20 gm PO BID [facility] Stop: 01/26/18 17:59 Last Admin: 12/28/17 17:54 Dose: Not Given Lorazepam (Ativan Inj 2 Mg/1 Ml Vial) 1 mg IV Q2HP PRN PRN Reason: ANXIETY/AGITATION Stop: 01/03/18 15:14 Last Admin: 12/27/17 22:37 Dose: 1 mg Lorazepam (Ativan Inj 2 Mg/1 Ml Vial) 1 mg IV Q4H APRYL Stop: 01/03/18 15:29 Last Admin: 12/28/17 15:33 Dose: Not Given Midodrine (Proamatine 5 Mg Tablet) 5 mg PO Q12A APRYL Stop: 01/27/18 17:59 Last Admin: 12/28/17 17:46 Dose: 5 mg Pantoprazole Sodium (Protonix Iv Inj 40 Mg Vial) 40 mg IV DAILY APRYL Stop: 01/01/18 09:59 Promethazine HCl (Phenergan Inj 25 Mg/1 Ml Vial) 12.5 mg IV Q4HP PRN PRN Reason: UNRESOLVED NAUSEA/VOMITING Stop: 01/26/18 14:58 Last Admin: 12/28/17 06:05 Dose: 12.5 mg Quetiapine Fumarate (Seroquel 25 Mg Tablet) 50 mg PO QHS APRYL Stop: 01/26/18 21:59 Last Admin: 12/27/17 21:59 Dose: 50 mg Rifaximin (Xifaxan 550 Mg Tablet) 550 mg PO BID APRYL Stop: 01/03/18 17:59 Last Admin: 12/28/17 17:47 Dose: 550 mg Spironolactone (Aldactone 25 Mg Tablet) 50 mg PO DAILY APRYL Stop: 01/28/18 09:59 Trazodone HCl (Desyrel 50 Mg Tablet) 100 mg PO QHS APRYL Stop: 01/26/18 21:59 Last Admin: 12/27/17 22:37 Dose: 100 mg - Allergies Allergies/Adverse Reactions: No Known Allergies Allergy (Verified 12/26/17 11:15) - Diet/Activity Discharge Diet: As Tolerated Hospital Course Hospital Course: Patient was admitted with nausea and vomiting with coffee-ground emesis as well as dark tarry stool and abdominal pain. She has had no further bleeding since admission. She was found to be more anemic today with her hemoglobin dropping down to 6.4 from 9.4 at admission. She did receive 2 units of packed red blood cell transfusion. Patient was also noted to be more thrombocytopenic today with a platelet count dropping from 108-39 coinciding with a dropping hemoglobin. She did have an upper endoscopy done today which showed no evidence of active bleeding. She had diffuse gastritis as well as grade 1 esophageal varices. Patient is allegedly on a transplant list at [facility]. She however has also been drinking and came in with alcohol withdrawal symptoms as per history and physical. Patient was also noted to be pancytopenic today with a white count of 2.7 hemoglobin of 6.4 and platelet count of 39,000. Unfortunately there is no platelets available at this institution and given the need for possible platelet transfusion she is being transferred to [facility] for further management. Patient's magnesium was 1.2 today and this was replaced. Her phosphorus was also 1.9 and this is also currently being replaced. Physical Exam Vital Signs: Temp Pulse Resp BP Pulse Ox 98.1 F 85 18 122/72 94 12/28/17 15:49 12/28/17 15:49 12/28/17 15:49 12/28/17 15:49 12/28/17 15:49 Intake & Output 12/27/17 12/28/17 12/29/17 06:59 06:59 06:59 Intake Total 1679 950 Balance 1679 950 Weight 83.1 kg General appearance: PRESENT: no acute distress Head exam: PRESENT: atraumatic Eye exam: PRESENT: scleral icterus Ear exam: PRESENT: normal external ear exam Neck exam: ABSENT: carotid bruit, JVD, lymphadenopathy, thyromegaly Respiratory exam: PRESENT: clear to auscultation galdino. ABSENT: rales, rhonchi, wheezes GI/Abdominal exam: PRESENT: normal bowel sounds, tenderness - mild vague. ABSENT: rigid Rectal exam: PRESENT: deferred Neurological exam: PRESENT: alert, awake, oriented to person, oriented to place Skin exam: PRESENT: pallor Results Laboratory Results: 12/28/17 05:55 12/28/17 05:55 12/28/17 12/28/17 12/28/17 05:55 05:55 05:55 WBC 2.7 L D RBC 1.87 L Hgb 6.4 L Hct 18.5 L MCV 99 H MCH 34.2 H MCHC 34.5 RDW 20.4 H Plt Count 39 L Seg Neutrophils % 55.9 Lymphocytes % 32.6 Monocytes % 7.2 Eosinophils % 2.8 Basophils % 1.5 Absolute Neutrophils 1.5 L Absolute Lymphocytes 0.9 Absolute Monocytes 0.2 Absolute Eosinophils 0.1 Absolute Basophils 0.0 Sodium 139.8 Potassium 3.7 Chloride 105 Carbon Dioxide 30 Anion Gap 5 BUN 17 Creatinine 0.72 Est GFR ( Amer) > 60 Est GFR (Non-Af Amer) > 60 Glucose 119 H Calcium 7.9 L Phosphorus 1.9 L Magnesium 1.2 L* Total Bilirubin 7.2 H AST 73 H ALT 32 Alkaline Phosphatase 74 Ammonia 19.6 Total Protein 5.7 L Albumin 2.4 L Triglycerides 85 Cholesterol 134.51 LDL Cholesterol Direct 48 VLDL Cholesterol 17.0 HDL Cholesterol 31 L Lipase 72.6 TSH Urine Color Urine Appearance Urine pH Ur Specific [place] Urine Protein Urine Glucose (UA) Urine Ketones Urine Blood Urine Nitrite Ur Leukocyte Esterase Urine WBC (Auto) 12/28/17 12/28/17 05:55 12:05 WBC RBC Hgb Hct MCV MCH MCHC RDW Plt Count Seg Neutrophils % Lymphocytes % Monocytes % Eosinophils % Basophils % Absolute Neutrophils Absolute Lymphocytes Absolute Monocytes Absolute Eosinophils Absolute Basophils Sodium Potassium Chloride Carbon Dioxide Anion Gap BUN Creatinine Est GFR ( Amer) Est GFR (Non-Af Amer) Glucose Calcium Phosphorus Magnesium Total Bilirubin AST ALT Alkaline Phosphatase Ammonia Total Protein Albumin Triglycerides Cholesterol LDL Cholesterol Direct VLDL Cholesterol HDL Cholesterol Lipase TSH 1.42 Urine Color DARK YELLOW Urine Appearance CLEAR Urine pH 7.0 Ur Specific [place] 1.015 Urine Protein NEGATIVE Urine Glucose (UA) 150 H Urine Ketones NEGATIVE Urine Blood NEGATIVE Urine Nitrite NEGATIVE Ur Leukocyte Esterase NEGATIVE Urine WBC (Auto) 1 Impressions: Chest X-Ray 12/27/17 12:39 IMPRESSION: NO ACUTE RADIOGRAPHIC FINDING IN THE CHEST. Plan Time Spent: Greater than 30 Minutes - Including arrangement for transfer to [facility] and patient care
[2017-12-28 18:31] LABS: HEMATOCRIT 25.4 % (36.0-47.0); MEAN CORPUSCULAR HEMOGLOBIN 33.2 pg (27.0-33.4); MEAN CORPUSCULAR HGB CONC 34.2 g/dL (32.0-36.0); MEAN CORPUSCULAR VOLUME 97 fl (80-97); RED BLOOD COUNT 2.61 10^6/uL (3.72-5.28); RED CELL DISTRIBUTION WIDTH 20.6 % (11.5-14.0); WHITE BLOOD COUNT 4.1 10^3/uL (4.0-10.5)
[2017-12-28 18:55] LABS: HEMOGLOBIN 8.7 g/dL (12.0-15.5); PLATELET COUNT 49 10^3/uL (150-450)
[2017-12-28] MEDS ORDERED: POTASSIUM PHOS,M-BASIC-D-BASIC 30 MMOL in NORMAL SALINE 500 ML IV ONE (19:30)
[2017-12-29] MEDS ORDERED: PANTOPRAZOLE SODIUM 40 MG VIAL IV SCH (10:00)
[2017-12-29] MEDS ORDERED: SPIRONOLACTONE 25 MG TABLET PO SCH (10:00)
== END 2017-12-28 19:45 | disposition short-term general hospital (02) | DRG 433 ==
LOC: ER 11:22 → EH 14:44 → 3W 18:28
PROVIDERS: ADMIT Internal Medicine; ATTEND Internal Medicine
PROC: 0DJ08ZZ Inspection of Upper Intestinal Tract, Via Natural or Artificial Opening Endoscopic (ICD-10-PCS; 2017-12-28)
PROC: 30233N1 Transfusion of Nonautologous Red Blood Cells into Peripheral Vein, Percutaneous Approach (ICD-10-PCS; principal; 2017-12-28 13:45)
DX: K74.60 Unspecified cirrhosis of liver (principal); K92.1 Melena; D61.818 Other pancytopenia; F10.231 Alcohol dependence with withdrawal delirium; D62 Acute posthemorrhagic anemia; I85.10 Secondary esophageal varices without bleeding; K29.70 Gastritis, unspecified, without bleeding; E83.42 Hypomagnesemia; K70.0 Alcoholic fatty liver; K75.81 Nonalcoholic steatohepatitis (NASH); Y90.2 Blood alcohol level of 40-59 mg/100 ml; E11.65 Type 2 diabetes mellitus with hyperglycemia; D64.9 Anemia, unspecified; D53.9 Nutritional anemia, unspecified; K76.0 Fatty (change of) liver, not elsewhere classified; Z76.82 Awaiting organ transplant status; Z79.4 Long term (current) use of insulin; Z79.899 Other long term (current) drug therapy
CPT/HCPCS: 00731; 36415; 36430; 43235; 71045; 80048; 80053; 80061; 80076; 80307; 81001; 82140; 82962; 83690; 83735; 84100; 84443; 85025; 85027; 85610; 85730; 86850; 86900; 86901; 86920; 87040; 87086; 93005; 93010; 96365; 96375; 99285; A9270-GY; G8978-GP; G8979-GP; J0171; J0696; J1815; J2060; J2405; J2550; J2704; J3475; J3490; J7030; J7040; P9016; S0164

== ENCOUNTER 2018-01-27 15:10 | Emergency (ER) | payer MEDICARE, OTHER ==
[2018-01-27] MEDS ORDERED: NORMAL SALINE 1000 ML 1,000 ML IV ONE ×2 (15:42→18:46)
[2018-01-27] MEDS: LORAZEPAM 1 MG TABLET PO PRN ×2 (15:51→18:35)
[2018-01-27 16:21] LABS: ABSOLUTE BASOPHILS # (AUTO) 0.1 10^3/uL (0.0-0.2); ABSOLUTE EOSINOPHILS # (AUTO) 0.3 10^3/uL (0.0-0.6); ABSOLUTE LYMPHOCYTES (AUTO) 2.2 10^3/uL (0.5-4.7); ABSOLUTE MONOCYTES (AUTO) 0.6 10^3/uL (0.1-1.4); ABSOLUTE NEUT (AUTO) 8.1 10^3/uL (1.7-8.2); BASOPHILS % (AUTO) 0.9 % (0-2); EOSINOPHILS % (AUTO) 2.3 % (0-6); HEMATOCRIT 34.9 % (36.0-47.0); HEMOGLOBIN 12.1 g/dL (12.0-15.5); LYMPHOCYTES % (AUTO) 19.3 % (13-45); MEAN CORPUSCULAR HEMOGLOBIN 32.6 pg (27.0-33.4); MEAN CORPUSCULAR HGB CONC 34.6 g/dL (32.0-36.0); MEAN CORPUSCULAR VOLUME 94 fl (80-97); MONOCYTES % (AUTO) 5.2 % (3-13); PLATELET COUNT 129 10^3/uL (150-450); RED BLOOD COUNT 3.71 10^6/uL (3.72-5.28); RED CELL DISTRIBUTION WIDTH 18.8 % (11.5-14.0); SEGMENTED NEUTROPHILS % (AUTO) 72.3 % (42-78); TOTAL CELLS COUNTED % (AUTO) 100 %; WHITE BLOOD COUNT 11.2 10^3/uL (4.0-10.5)
--- NOTE | 2018-01-27 16:26 | ER Document Report ---
ED General - General Chief Complaint: Nausea/Vomiting Stated Complaint: NAUSEA/VOMITING Time Seen by Provider: 01/27/18 15:36 Mode of Arrival: Ambulatory Information source: Patient Notes: 52-year-old female presents emergency department with nausea and vomiting over the last 5 days. Patient states that she has a history of liver failure and is following up at [place]. Patient states that she does consume alcohol daily. Her last drink was approximately 4 hours ago. Patient states that she has gone into withdrawal previously. Has had withdrawal seizures. Patient does not want Alcohol detox. Patient states that she is here for the nausea and vomiting. She ran out of her Phenergan this morning. Patient denies any abdominal pain, diarrhea, constipation, dysuria, hematuria, melena, hematemesis, hematochezia. TRAVEL OUTSIDE OF THE [place] IN LAST 30 DAYS: No - HPI Patient complains to provider of: nausea and vomiting Onset: Last week Onset/Duration: Gradual Quality of pain: No pain Severity: None Pain Level: Denies Associated symptoms: Nausea, Vomiting. denies: Diarrhea Exacerbated by: Denies Relieved by: Denies Similar symptoms previously: Yes Recently seen / treated by doctor: No - Related Data Allergies/Adverse Reactions: No Known Allergies Allergy (Verified 01/27/18 15:11) Past Medical History - Social History Smoking Status: Former Smoker Chew tobacco use (# tins/day): No Frequency of alcohol use: None Drug Abuse: None Family History: None, Reviewed & Not Pertinent Patient has suicidal ideation: No Patient has homicidal ideation: No - Past Medical History Cardiac Medical History: Denies: Hx Atrial Fibrillation, Hx Congestive Heart Failure, Hx Coronary Artery Disease, Hx Hypercholesterolemia, Hx Hypertension Pulmonary Medical History: Denies: Hx Asthma, Hx Bronchitis, Hx COPD, Hx Respiratory Failure Neurological Medical History: Denies: Hx Seizures Endocrine Medical History: Reports: Hx Diabetes Mellitus Type 2 Renal/ Medical History: Denies: Hx Peritoneal Dialysis GI Medical History: Denies: Hx Hepatitis Infectious Medical History: Denies: Hx Hepatitis Past Surgical History: Reports: Hx Cholecystectomy, Hx Hysterectomy - Immunizations Hx Diphtheria, Pertussis, Tetanus Vaccination: Yes Review of Systems - Review of Systems Constitutional: No symptoms reported EENT: No symptoms reported Cardiovascular: No symptoms reported Respiratory: No symptoms reported Gastrointestinal: Nausea, Vomiting, Poor appetite, Poor fluid intake. denies: Abdomen distended, Abdominal pain, Diarrhea, Blood streaked bowels, Blood in vomit, Black stools, Rectal bleeding Genitourinary: No symptoms reported Female Genitourinary: No symptoms reported Musculoskeletal: No symptoms reported Skin: No symptoms reported Hematologic/Lymphatic: No symptoms reported Neurological/Psychological: No symptoms reported -: Yes All other systems reviewed and negative Physical Exam - Vital signs Vitals: Temp Pulse Resp BP Pulse Ox 98.8 F 123 H 18 120/65 95 01/27/18 15:15 01/27/18 15:15 01/27/18 15:15 01/27/18 15:15 01/27/18 15:15 Interpretation: Tachycardic - Notes Notes: PHYSICAL EXAMINATION: GENERAL: Well-appearing, well-nourished and in no acute distress. HEAD: Atraumatic, normocephalic. EYES: Pupils equal round and reactive to light, extraocular movements intact, icterus. ENT: Nares patent, oropharynx clear without exudates. Moist mucous membranes. NECK: Normal range of motion, supple without lymphadenopathy LUNGS: Breath sounds clear to auscultation bilaterally and equal. No wheezes rales or rhonchi. HEART: Regular rate and rhythm without murmurs ABDOMEN: Soft, nontender, nondistended abdomen. No guarding, no rebound. No masses appreciated. Female : deferred Musculoskeletal: Normal range of motion, no pitting or edema. No cyanosis. NEUROLOGICAL: Cranial nerves grossly intact. Normal speech, normal gait. Normal sensory, motor exams PSYCH: Normal mood, normal affect. SKIN: Warm, Dry, normal turgor, no rashes or lesions noted. Course - Re-evaluation Re-evalutation: 01/27/18 19:58 In the emergency department, patient is awake, alert, oriented 3. Patient states that she is taking lactulose. Labs were obtained. Liver enzymes similar to previous. ETOH elevated. Potassium and Magnesium are Low. Patient given Potassium Chloride and Magnesium Sulfate in the ED. Also given 2L of fluids. Patient was given phenergan and reglan for nausea. On re-evaluation, patient says the nausea has resolved. Consuming food and fluids orally. No episodes of emesis in the ED. Tachycardia reduced. I will discharge the patient home. Patient instructed to continue taking her medications prescribed as directed, to follow-up with her GI physician at [place] as scheduled, and to return to the emergency department for any worsening symptoms. Patient is agreeable to plan of care. 01/27/18 20:04 - Vital Signs Vital signs: Temp Pulse Resp BP Pulse Ox 98.8 F 123 H 21 H 120/59 L 95 01/27/18 15:15 01/27/18 15:15 01/27/18 19:01 01/27/18 19:01 01/27/18 19:01 - Laboratory Result Diagrams: 01/27/18 15:45 01/27/18 15:45 Laboratory results interpreted by me: 01/27/18 01/27/18 01/27/18 15:45 15:45 15:45 WBC 11.2 H RBC 3.71 L Hct 34.9 L RDW 18.8 H Plt Count 129 L Potassium 3.5 L Chloride 91 L Anion Gap 23 H Glucose 269 H Magnesium 1.3 L Total Bilirubin 6.6 H Direct Bilirubin 2.6 H AST 102 H Ammonia 50.5 H Total Protein 9.3 H Discharge - Discharge Clinical Impression: Intoxication, Hypomagnesemia Nausea & vomiting Qualifiers: Vomiting type: unspecified Vomiting Intractability: unspecified Qualified Code( s): R11.2 - Nausea with vomiting, unspecified Condition: Stable Disposition: HOME, SELF-CARE Instructions: Vomiting ([facility]) Prescriptions: Promethazine HCl [Phenergan 25 mg Tablet] 1 - 2 tab PO Q6H PRN #15 tablet PRN Reason: Referrals: JUHI OZUNA MD [Primary Care Provider] - Follow up as needed
[2018-01-27] MEDS ORDERED: ONDANSETRON HCL INJ/PF 4 MG/2 ML SDV IV ONE (16:32)
[2018-01-27 16:40] LABS: ALANINE AMINOTRANSFERASE 21 U/L (9-52); ALBUMIN 4.3 g/dL (3.5-5.0); ALCOHOL 242 mg/dL (NONE DETECTED); ALKALINE PHOSPHATASE 114 U/L (38-126); ASPARTATE AMINO TRANSFERASE 102 U/L (14-36); BILIRUBIN,DIRECT 2.6 mg/dL (0.0-0.4); BILIRUBIN,TOTAL 6.6 mg/dL (0.2-1.3); BLOOD UREA NITROGEN 12 mg/dL (7-20); CARBON DIOXIDE 26 mmol/L (22-30); CHLORIDE 91 mmol/L (98-107); GLUCOSE 269 mg/dL (75-110); POTASSIUM 3.5 mmol/L (3.6-5.0); SODIUM 140.2 mmol/L (137-145); TOTAL PROTEIN 9.3 g/dL (6.3-8.2)
[2018-01-27 16:45] LABS: ANION GAP 23 (5-19)
[2018-01-27] MEDS ORDERED: PROMETHAZINE HCL INJ 25 MG/1 ML VIAL IV ONE (16:55)
[2018-01-27] MEDS ORDERED: MAGNESIUM SULFATE/D5W 1 GM/100 ML RTUPB IV ONE (18:07)
[2018-01-27] MEDS ORDERED: POTASSIUM CHLORIDE 10 MEQ TABLET.SA PO ONE (18:08)
[2018-01-27] MEDS ORDERED: METOCLOPRAMIDE HCL INJ/PF 10 MG/2 ML SDV IV ONE (18:31)
[2018-01-27 20:06] VITALS: BP 140/72
== END 2018-01-27 20:30 | disposition home or self-care (01) ==
LOC: ER 15:10
DX: F10.129 Alcohol abuse with intoxication, unspecified (principal); R11.2 Nausea with vomiting, unspecified; E83.42 Hypomagnesemia; R63.0 Anorexia; E11.9 Type 2 diabetes mellitus without complications; R00.0 Tachycardia, unspecified; Z87.891 Personal history of nicotine dependence; Z87.19 Personal history of other diseases of the digestive system; Z90.49 Acquired absence of other specified parts of digestive tract
CPT/HCPCS: 99284; 96361; 96375; 96365; 36415; 80307; 82140; 83735; 85025; 80053; J2765; J3475; A9270 ×2; J2550; J7030

== ENCOUNTER 2018-02-16 17:42 | Emergency (ER) | payer MEDICARE, OTHER ==
[2018-02-16] MEDS ORDERED: NORMAL SALINE 1,000 ML IV ONE (17:58)
[2018-02-16 18:44] LABS: ABSOLUTE BASOPHILS # (AUTO) 0.1 10^3/uL (0.0-0.2); ABSOLUTE EOSINOPHILS # (AUTO) 0.1 10^3/uL (0.0-0.6); ABSOLUTE LYMPHOCYTES (AUTO) 1.8 10^3/uL (0.5-4.7); ABSOLUTE MONOCYTES (AUTO) 0.5 10^3/uL (0.1-1.4); ABSOLUTE NEUT (AUTO) 6.7 10^3/uL (1.7-8.2); EOSINOPHILS % (AUTO) 0.9 % (0-6); HEMATOCRIT 31.2 % (36.0-47.0); HEMOGLOBIN 10.8 g/dL (12.0-15.5); LYMPHOCYTES % (AUTO) 19.4 % (13-45); MEAN CORPUSCULAR HEMOGLOBIN 33.3 pg (27.0-33.4); MEAN CORPUSCULAR HGB CONC 34.6 g/dL (32.0-36.0); MEAN CORPUSCULAR VOLUME 96 fl (80-97); MONOCYTES % (AUTO) 5.4 % (3-13); RED BLOOD COUNT 3.24 10^6/uL (3.72-5.28); RED CELL DISTRIBUTION WIDTH 19.2 % (11.5-14.0); SEGMENTED NEUTROPHILS % (AUTO) 73.3 % (42-78); TOTAL CELLS COUNTED % (AUTO) 100 %; WHITE BLOOD COUNT 9.2 10^3/uL (4.0-10.5)
[2018-02-16 19:07] LABS: ALANINE AMINOTRANSFERASE 18 U/L (9-52); ALBUMIN 4.3 g/dL (3.5-5.0); ALKALINE PHOSPHATASE 123 U/L (38-126); ANION GAP 19 (5-19); ASPARTATE AMINO TRANSFERASE 150 U/L (14-36); BILIRUBIN,DIRECT 3.1 mg/dL (0.0-0.4); BILIRUBIN,TOTAL 8.4 mg/dL (0.2-1.3); BLOOD UREA NITROGEN 11 mg/dL (7-20); CALCIUM 8.8 mg/dL (8.4-10.2); CARBON DIOXIDE 29 mmol/L (22-30); CHLORIDE 95 mmol/L (98-107); GLUCOSE 185 mg/dL (75-110); LIPASE 36.9 U/L (23-300); POTASSIUM 3.9 mmol/L (3.6-5.0); SODIUM 142.6 mmol/L (137-145); TOTAL PROTEIN 9.2 g/dL (6.3-8.2)
[2018-02-16] MEDS ORDERED: METOCLOPRAMIDE HCL INJ/PF 10 MG/2 ML SDV IV ONE (19:22)
[2018-02-16 19:24] LABS: PLATELET COUNT 89 10^3/uL (150-450)
--- NOTE | 2018-02-16 19:52 | RADIOLOGY REPORT (SQ) ---
EXAM DESCRIPTION: ABDOMEN 2 VIEWS COMPLETED DATE/TIME: 02/16/2018 7:45 pm REASON FOR STUDY: eval obstruction COMPARISON: None. NUMBER OF VIEWS: Two views. TECHNIQUE: Supine and erect/decubitus radiographic images of the abdomen acquired. LIMITATIONS: None. FINDINGS: FREE AIR: None. No abnormal gas collections. LUNG BASES: Clear. BOWEL GAS PATTERN: Nonobstructive pattern. No dilated loops or air fluid levels. CALCIFICATIONS: No suspicious calcifications. SOFT TISSUES: No gross mass or suggestion of organomegaly. HARDWARE: Right upper quadrant clips. BONES: No acute fracture. No worrisome bone lesions. OTHER: No other significant finding. IMPRESSION: NO RADIOGRAPHIC EVIDENCE FOR ACUTE ABDOMINAL DISEASE. TECHNICAL DOCUMENTATION: JOB ID: [id number] [employer]- All Rights Reserved Reading location - IP/workstation name: [email or web address]
[2018-02-16] MEDS ORDERED: DIAZEPAM INJ 10 MG/2 ML DISP.SYRIN IV ONE ×2 (20:13→23:14)
[2018-02-16] MEDS ORDERED: LIDOCAINE 2% VISCOUS SOLN 20 ML UDCUP PO ONE (20:19)
[2018-02-16] MEDS ORDERED: MAG HYDROX/AL HYDROX/SIMETH SUSP 30 ML UDCUP PO ONE (20:19)
--- NOTE | 2018-02-16 20:20 | ER Document Report ---
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 The patient reports that her symptoms started gradually have gotten progressively worse since that time. Nothing improves her symptoms including Zofran and Phenergan at home. Any attempt at eating or drinking worsens her symptoms. 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 She does admit to continued alcohol consumption including today. She has not seen her general doctor regarding today's concerns. She denies any focal abdominal pain. No fever or constitutional symptoms. She states that her main concern was that she was becoming dehydrated which prompted her to come to the hospital. TRAVEL OUTSIDE OF THE [place] IN LAST 30 DAYS: No - Related Data Allergies/Adverse Reactions: No Known Allergies Allergy (Verified 02/16/18 17:44) Past Medical History - General Information source: Patient, Relative - Social History Smoking Status: Former Smoker Frequency of alcohol use: None Drug Abuse: None Lives with: Spouse/Significant other Family History: Reviewed & Not Pertinent Patient has suicidal ideation: No Patient has homicidal ideation: No - Past Medical History Cardiac Medical History: Denies: Hx Atrial Fibrillation, Hx Congestive Heart Failure, Hx Coronary Artery Disease, Hx Hypercholesterolemia, Hx Hypertension Pulmonary Medical History: Denies: Hx Asthma, Hx Bronchitis, Hx COPD, Hx Respiratory Failure Neurological Medical History: Denies: Hx Seizures Endocrine Medical History: Reports: Hx Diabetes Mellitus Type 2 Renal/ Medical History: Denies: Hx Peritoneal Dialysis GI Medical History: Denies: Hx Hepatitis Infectious Medical History: Denies: Hx Hepatitis Past Surgical History: Reports: Hx Cholecystectomy, Hx Hysterectomy - Immunizations Hx Diphtheria, Pertussis, Tetanus Vaccination: Yes Review of Systems - Review of Systems Notes: Constitutional: Negative for fever. HENT: Negative for sore throat. Eyes: Negative for visual changes. Cardiovascular: Negative for chest pain. Respiratory: Negative for shortness of breath. Gastrointestinal: Negative for abdominal pain, positive for vomiting Genitourinary: Negative for dysuria. Musculoskeletal: Negative for back pain. Skin: Negative for rash. Neurological: Positive for tremulousness 10 point ROS negative except as marked above and in HPI. Physical Exam - Vital signs Vitals: Resp Pulse Ox 21 H 99 02/16/18 21:11 02/16/18 21:11 Interpretation: Hypertensive, Tachycardic Notes: PHYSICAL EXAMINATION: GENERAL: Appears older than stated age, mildly uncomfortable but no acute distress HEAD: Atraumatic, normocephalic. EYES: Pupils equal round and reactive to light, extraocular movements intact, sclera are icteric bilaterally, conjunctiva are normal. ENT: nares patent, oropharynx clear without exudates. Dry mucous membranes. NECK: Normal range of motion, supple without lymphadenopathy LUNGS: Breath sounds clear to auscultation bilaterally and equal. No wheezes rales or rhonchi. HEART: Regular tachycardia without murmurs ABDOMEN: Soft, nontender, normoactive bowel sounds. No guarding, no rebound. No masses appreciated. EXTREMITIES: Normal range of motion, no pitting or edema. No cyanosis. NEUROLOGICAL: No focal neurological deficits. Moves all extremities spontaneously and on command. PSYCH: Moderately tremulous, mildly anxious SKIN: Warm, visibly icteric Course - Re-evaluation Re-evalutation: 02/16/18 20:15 The patient presents with 4 days of persistent vomiting and nausea but denies any abdominal pain. On examination the patient is visibly icteric, has a known history of advanced liver failure due to Solorio but does also continue to drink alcohol including over the past several days. She is mildly tremulous but is not showing any additional overt signs of alcohol withdrawal at this time point. On abdominal exam she has no focal abdominal tenderness, rebound or guarding. She has no abdominal ascites to suspect SBP. Her labs are notable for an elevated bilirubin overall nonsignificantly changed from her prior assessment on 01/27 when she was seen here for a similar presentation. Her labs continue to show thrombocytopenia and a borderline macrocytic anemia again minimal change from prior. She denies any melena, hematemesis or hematochezia. Patient has had frequent presentations for the same and I suspect that much of this is related to her ongoing alcohol abuse with a known history of severe gastritis as well as liver failure. I had an extensive conversation with the patient and her at the bedside about the lethal nature of her ongoing alcohol abuse as well as the invariable ending of if she does continue to pursue regular use of alcohol. I have also emphasized with her that this would preclude her ever receiving a liver transplant. I have encouraged the patient to seek inpatient detox as she has a history of alcohol withdrawal involving seizures. The patient has had no further vomiting here in the emergency department after receiving metoclopramide and her initial tremulousness has improved after receiving Valium. She has received 1 L of IV fluids. She has been able to tolerate oral intake without difficulty. 02/17/18 0130 patient has had persistent ongoing tachycardia And does report that she did not take her propranolol today. She also appears to be having worsening withdrawals. Patient states that she needs to go home, take care of her dog and family. I have advised the patient against this that she does have persistent tachycardia and I would like to ensure that this normalizes after she receives her home medication and an additional dose of diazepam. The patient however has declined and will leave AGAINST MEDICAL ADVICE. She is clinically sober, has a clear understanding of my concerns that this could be progressively worsening withdrawal which could lead to seizures, delirium tremens, even . She states the reason that she needs to go home is that her heart rate is always high, she does not feel concerned about this and overall feels that her withdrawals are not that severe at this time point. - Vital Signs Vital signs: Temp Pulse Resp BP Pulse Ox 18 138/78 H 98 02/16/18 23:29 02/16/18 23:29 02/16/18 23:01 - Laboratory Result Diagrams: 02/16/18 18:30 02/16/18 18:30 Laboratory results interpreted by me: 02/16/18 02/16/18 18:30 18:30 RBC 3.24 L Hgb 10.8 L Hct 31.2 L RDW 19.2 H Plt Count 89 L Chloride 95 L Glucose 185 H Total Bilirubin 8.4 H Direct Bilirubin 3.1 H AST 150 H Total Protein 9.2 H - Diagnostic Test Radiology reviewed: Image reviewed, Reports reviewed Radiology results interpreted by me: 02/16/18 20:17 Abdomen 2 view: No evidence for obstruction, perforation Discharge - Discharge Clinical Impression: SOLORIO (nonalcoholic steatohepatitis), Abnormal LFTs, Thrombocytopenia, Dehydration Nausea and vomiting Qualifiers: Vomiting type: unspecified Vomiting Intractability: non-intractable Qualified Code(s): R11.2 - Nausea with vomiting, unspecified Alcohol dependence Qualifiers: Substance use status: unspecified alcohol-induced disorder Qualified Code(s): F10.29 - Alcohol dependence with unspecified alcohol-induced disorder Condition: Fair Disposition: AGAINST MEDICAL ADVICE Additional Instructions: You have been seen in the Emergency Department (ED) today for nausea and vomiting. Your work up today has not shown a clear cause for your symptoms. Your liver failure is overall unchanged from your prior assessment. As we have discussed, it is of critical importance that you seek inpatient detox for alcohol as your ongoing alcohol use is likely contributing to why you have recurrent nausea and vomiting and also prevents you from ever being able to receive a curative transplant. Follow up with your doctor as soon as possible regarding today's emergent visit and your symptoms of nausea. Return to the Emergency Department (ED) if you develop abdominal pain, bloody vomiting, bloody diarrhea, if you are unable to tolerate fluids due to vomiting , or if you develop other symptoms that concern you. Prescriptions: Promethazine HCl [Phenergan 25 mg Supp.rect] 1 supp GA Q6H #12 supp.rect Referrals: JUHI OZUNA MD [Primary Care Provider] - Follow up tomorrow
[2018-02-16] MEDS ORDERED: NORMAL SALINE 1000 ML 1,000 ML IV ONE (21:21)
[2018-02-16] MEDS ORDERED: PROPRANOLOL HCL 10 MG TABLET PO ONE (23:14)
[2018-02-17 01:36] VITALS: BP 138/78
== END 2018-02-16 23:45 | disposition left against medical advice (07) ==
LOC: ER 17:42
DX: K75.81 Nonalcoholic steatohepatitis (NASH) (principal); R79.89 Other specified abnormal findings of blood chemistry; D69.6 Thrombocytopenia, unspecified; E86.0 Dehydration; R11.2 Nausea with vomiting, unspecified; F10.29 Alcohol dependence with unspecified alcohol-induced disorder; E11.9 Type 2 diabetes mellitus without complications; Z90.49 Acquired absence of other specified parts of digestive tract; Z90.710 Acquired absence of both cervix and uterus; Z87.891 Personal history of nicotine dependence
CPT/HCPCS: 96376; 99284; 96361; 96374; 96375; 36415; 83690; 85025; 80053; 74019; J3360; J3490; J2765; A9270; J7030; J7040